=== PATIENT | male | born 2005 | race Caucasian/White ===

== ENCOUNTER 2025-01-01 12:29 | Emergency (ER) | payer OTHER ==
[~2025-01-01] VITALS: Ht 182.9 cm; Wt 88.5 kg
[2025-01-01] MEDS ORDERED: AMOCLA875 PO (14:06)
== END 2025-01-01 14:12 | disposition home or self-care (01) ==
LOC: ER 12:29
DX: S61.251A Open bite of left index finger without damage to nail, initial encounter (principal); S61.552A Open bite of left wrist, initial encounter; W55.01XA Bitten by cat, initial encounter
CPT/HCPCS: 90471; 90715; 99283-25; A9270